=== PATIENT | male | born 1985 | race Caucasian/White ===

== ENCOUNTER 2017-08-23 22:11 | Emergency (ER) | payer OTHER ==
[2017-08-23 22:39] LABS: ADD MAN DIFF? NO
[2017-08-23 22:42] LABS: BILIRUBIN,URINE NEGATIVE (NEG); CLARITY,URINE CLEAR; COLOR,URINE YELLOW; GLUCOSE,URINE NEGATIVE (NEG); NITRITE,URINE NEGATIVE (NEG); PH,URINE 5.5; PROTEIN,URINE NEGATIVE (NEG-TRACE)
[2017-08-23 22:44] LABS: BASO # 0.1 x10^3/uL (0.0-0.2); BASO % 1 % (0-3); EOS # 0.5 x10^3/uL (0.0-0.7); EOS % 4 % (0-3); HEMATOCRIT 46.9 % (39.0-53.0); HEMOGLOBIN 16.2 g/dL (13.0-17.5); LYMPH # 3.5 x10^3/uL (1.0-4.8); LYMPH % 29 % (24-48); MEAN CORPUSCULAR HEMOGLOBIN 31 pg (25-35); MEAN CORPUSCULAR HGB CONC 35 g/dL (31-37); MEAN CORPUSCULAR VOLUME 88 fL (79-100); MONO # 1.3 x10^3/uL (0.0-1.1); MONO % 10 % (0-9); NEUT # 6.7 x10^3uL (1.8-7.7); NEUT % 56 % (31-73); PLATELET COUNT 279 x10^3/uL (140-400); RED BLOOD COUNT 5.32 x10^6/uL (4.30-5.70); RED CELL DISTRIBUTION WIDTH 13.7 % (11.5-14.5); WHITE BLOOD COUNT 12.1 x10^3/uL (4.0-11.0)
[2017-08-23 22:47] LABS: BACTERIA,URINE FEW /HPF (0-FEW); RBC,URINE 0 /HPF (0-2); SQUAMOUS EPITHELIAL CELL,UR MANY /LPF
[2017-08-23 22:52] LABS: ANION GAP 9 (6-14); BLOOD UREA NITROGEN 10 mg/dL (8-26); BUN/CREATININE RATIO 10 (6-20); CALCIUM 8.8 mg/dL (8.5-10.1); CARBON DIOXIDE 29 mmol/L (21-32); CHLORIDE 102 mmol/L (98-107); GFR 86.1; GLUCOSE 88 mg/dL (70-99); POTASSIUM 3.6 mmol/L (3.5-5.1); SODIUM 140 mmol/L (136-145)
[2017-08-23] MEDS: FAMOTIDINE 20 MG/2 ML VIAL IVP (22:55)
[2017-08-23] MEDS: IV NORMAL SALINE 1000ML BAG 1,000 ML IV (22:55)
[2017-08-23] MEDS: KETOROLAC 30 MG/ML INJ. IV (22:56)
[2017-08-23] MEDS: ONDANSETRON PF 4 MG/2 ML VIAL. IV (22:56)
[2017-08-23 22:58] LABS: ALBUMIN 4.2 g/dL (3.4-5.0); ALBUMIN/GLOBULIN RATIO 1.1 (1.0-1.7); ALK PHOS 74 U/L (46-116); ALT (SGPT) 69 U/L (16-63); AST (SGOT) 35 U/L (15-37); LIPASE 208 U/L (73-393); MAGNESIUM 2.1 mg/dL (1.8-2.4); TOTAL BILIRUBIN 0.3 mg/dL (0.2-1.0); TOTAL PROTEIN 7.9 g/dL (6.4-8.2)
== END 2017-08-23 23:45 | disposition home or self-care (01) ==
LOC: ER 22:11
DX: R10.13 Epigastric pain (principal); R11.2 Nausea with vomiting, unspecified; G89.29 Other chronic pain; Z98.890 Other specified postprocedural states
CPT/HCPCS: 36415; 80053; 81001; 83690; 83735; 85025; 87086; 96374; 96375; 99284-25; J1885; J2405; J7030; S0028

== ENCOUNTER 2018-09-17 11:52 | Emergency (ER) | payer MEDICAID, OTHER ==
[~2018-09-17] VITALS: Ht 165.1 cm; Wt 122.5 kg
[~2018-09-17 11:52] MED LIST: CALC200T23 PO; FAMO-63 PO; ONDA4TAB7 PO; PANT40TA77 PO
--- NOTE | 2018-09-17 12:27 | EKG ---
[facility] [address] [place] [address] Test Date: 2018-09-17 Test Time: 11:55:43 Pat Name: YVROSE HERNÁNDEZ Department: Room: Gender: M Assistant Plant Manager: : [id number] Requested By: SALAZAR ALVAREZ Order Number: [id number] Reading MD: Measurements Intervals [place] Rate: 96 P: 30 FL: 152 QRS: 28 QRSD: 76 T: 29 QT: 316 QTc: 400 Interpretive Statements SINUS RHYTHM NO SPECIFIC ECG ABNORMALITIES RI6.01 Unconfirmed report No previous ECG available for comparison
[2018-09-17 12:30] LABS: BASO # 0.1 x10^3/uL (0.0-0.2); BASO % 1 % (0-3); EOS # 0.2 x10^3/uL (0.0-0.7); EOS % 3 % (0-3); HEMATOCRIT 47.5 % (39.0-53.0); HEMOGLOBIN 16.6 g/dL (13.0-17.5); LYMPH # 2.5 x10^3/uL (1.0-4.8); LYMPH % 27 % (24-48); MEAN CORPUSCULAR HEMOGLOBIN 31 pg (25-35); MEAN CORPUSCULAR HGB CONC 35 g/dL (31-37); MEAN CORPUSCULAR VOLUME 88 fL (79-100); MONO # 0.7 x10^3/uL (0.0-1.1); MONO % 8 % (0-9); NEUT # 5.5 x10^3/uL (1.8-7.7); NEUT % 61 % (31-73); PLATELET COUNT 223 x10^3/uL (140-400); RED CELL DISTRIBUTION WIDTH 13.9 % (11.5-14.5); WHITE BLOOD COUNT 9.1 x10^3/uL (4.0-11.0)
--- NOTE | 2018-09-17 12:32 | PHYS DOC ---
Past Medical History Past Medical History: Seizure, Other Additional Past Medical Histor: Heart murmur, Chronic back pain Past Surgical History: Other Additional Past Surgical Histo: Low back surgery. Additional Information: Alcohol Use: None Drug Use: None Adult General Chief Complaint Chief Complaint: UPPER EXTREMITY PAIN HPI HPI Patient is a 32 year old male with history of seizures who presents to the ED today 7 out of 10 left arm pain, patient is also complaining of 7 out of 10 left neck pain and intermittent episodes of a headache, patient states symptoms began yesterday. Patient states symptoms do not radiate from the neck to the arm. Denies anything specifically alleviating his symptoms. He states his left arm pain is worse on range of motion, he states his left neck pain is worse on turning his neck to the left. Denies any fever, chest pain, nausea, vomiting. He states he is not had a seizure 4 years. He states his seizures were induced by heat. He denies being on any antiseizure medications. Patient states he has tried taking Tylenol and Motrin with no relief. Review of Systems Review of Systems Constitutional: Denies fever or chills [] Eyes: Denies change in visual acuity, redness, or eye pain [] HENT: Denies nasal congestion or sore throat [] Respiratory: Denies cough or shortness of breath [] Cardiovascular: No additional information not addressed in HPI [] GI: Denies abdominal pain, nausea, vomiting, bloody stools or diarrhea [] : Denies dysuria or hematuria [] Musculoskeletal: Reports left arm pain. Reports left lateral neck pain. Integument: Denies rash or skin lesions [] Neurologic: Reports headache, denies focal weakness or sensory changes [] All other systems were reviewed and found to be within normal limits, except as documented in this note. Allergies Allergies Allergies Coded Allergies Type Severity Reaction Last Updated Verified No Known Allergies Allergy Unknown 11/16/15 Yes Physical Exam Physical Exam Constitutional: Well developed, well nourished, no acute distress, non-toxic appearance. [] HENT: Normocephalic, atraumatic, bilateral external ears normal, oropharynx moist, no oral exudates, nose normal. [] Eyes: PERRLA, EOMI, conjunctiva normal, no discharge. [] Neck: Normal range of motion, no tenderness, supple, no stridor. [] Cardiovascular:Heart rate regular rhythm, no murmur [] Lungs & Thorax: Bilateral breath sounds clear to auscultation [] Abdomen: Bowel sounds normal, soft, no tenderness, no masses, no pulsatile masses. [] Skin: Warm, dry, no erythema, no rash. [] Back: No tenderness, no CVA tenderness. [] Extremities: No tenderness, no cyanosis, no clubbing, ROM intact, no edema. [] Neurologic: Alert and oriented X 3, normal motor function, normal sensory function, no focal deficits noted. [] Psychologic: Affect normal, judgement normal, mood normal. Current Patient Data Vital Signs Vital Signs Date Time Temp Pulse Resp B/P (MAP) Pulse Ox O2 Delivery O2 Flow Rate FiO2 09/17/18 11:58 98.8 95 16 152/96 (114) 97 Room Air 98.8 Lab Values Laboratory Tests Test 09/17/18 12:10 White Blood Count 9.1 x10^3/uL (4.0-11.0) Red Blood Count 5.40 x10^6/uL (4.30-5.70) Hemoglobin 16.6 g/dL (13.0-17.5) Hematocrit 47.5 % (39.0-53.0) Mean Corpuscular Volume 88 fL (79-100) Mean Corpuscular Hemoglobin 31 pg (25-35) Mean Corpuscular Hemoglobin Concent 35 g/dL (31-37) Red Cell Distribution Width 13.9 % (11.5-14.5) Platelet Count 223 x10^3/uL (140-400) Neutrophils (%) (Auto) 61 % (31-73) Lymphocytes (%) (Auto) 27 % (24-48) Monocytes (%) (Auto) 8 % (0-9) Eosinophils (%) (Auto) 3 % (0-3) Basophils (%) (Auto) 1 % (0-3) Neutrophils # (Auto) 5.5 x10^3/uL (1.8-7.7) Lymphocytes # (Auto) 2.5 x10^3/uL (1.0-4.8) Monocytes # (Auto) 0.7 x10^3/uL (0.0-1.1) Eosinophils # (Auto) 0.2 x10^3/uL (0.0-0.7) Basophils # (Auto) 0.1 x10^3/uL (0.0-0.2) Sodium Level 139 mmol/L (136-145) Potassium Level 4.0 mmol/L (3.5-5.1) Chloride Level 102 mmol/L (98-107) Carbon Dioxide Level 26 mmol/L (21-32) Anion Gap 11 (6-14) Blood Urea Nitrogen 10 mg/dL (8-26) Creatinine 0.9 mg/dL (0.7-1.3) Estimated GFR (Cockcroft-Gault) 96.6 BUN/Creatinine Ratio 11 (6-20) Glucose Level 115 mg/dL (70-99) H Calcium Level 9.3 mg/dL (8.5-10.1) Magnesium Level 2.1 mg/dL (1.8-2.4) Total Bilirubin 0.4 mg/dL (0.2-1.0) Aspartate Amino Transferase (AST) 41 U/L (15-37) H Alanine Aminotransferase (ALT) 76 U/L (16-63) H Alkaline Phosphatase 77 U/L (46-116) Creatine Kinase 213 U/L (39-308) Creatine Kinase MB (Mass) 2.4 ng/mL (0.0-3.6) Creatine Kinase MB Relative Index 1.1 % (0-4) Troponin I Quantitative < 0.017 ng/mL (0.000-0.055) RC-Pxs-G-Type Natriuretic Peptide 10 pg/mL (0-124) Total Protein 7.8 g/dL (6.4-8.2) Albumin 4.0 g/dL (3.4-5.0) Albumin/Globulin Ratio 1.1 (1.0-1.7) Thyroid Stimulating Hormone (TSH) 1.072 uIU/mL (0.358-3.74) Laboratory Tests 09/17/18 12:10 Laboratory Tests 09/17/18 12:10 EKG EKG [address] Macias sinus rhythm HR 96 no STEMI[] Radiology/Procedures Radiology/Procedures []PROCEDURE: CERVICAL SPINE 2-3V C-SPINE 4 VIEWS Clinical Indication: neck pain. Left arm radiculopathy. Comparison: None. Findings: Lateral, swimmer's, AP, and open-mouth views. Bony overlap on the swimmer's view limits evaluation. Straightening of normal cervical lordosis may be positional or due to muscle spasm. The prevertebral soft tissues are normal. There is mild degenerative endplate spurring in the cervical spine. Mild disc space narrowing at C4/C5 and C6/C7. No significant uncovertebral or facet joint hypertrophy. The base of the odontoid is intact. The lateral masses are symmetric. There is no acute fracture or spondylolisthesis. IMPRESSION: No acute fracture or malalignment. Electronically signed by: Sami Etienne MD (09/17/2018 12:48 PM) [facility] DICTATED and SIGNED BY: SAMI ETIENNE MD DATE: 09/17/18 1248 PROCEDURE: PORTABLE CHEST 1V PORTABLE CHEST 1V Clinical Indication: Shortness of air, left-sided chest and arm pain. Comparison: AP chest, November 16, 2015. Findings: The cardiomediastinal silhouette is normal. Lungs are clear. There is no pneumothorax. No pleural effusion is appreciated. No acute bone abnormality. IMPRESSION: No acute cardiopulmonary process. Electronically signed by: Sami Etienne MD (09/17/2018 12:49 PM) [facility] DICTATED and SIGNED BY: SAMI ETIENNE MD DATE: 09/17/18 124 PROCEDURE: CT HEAD WO CONTRAST PQRS Compliance Statement: One or more of the following individualized dose reduction techniques were utilized for this examination: 1. Automated exposure control 2. Adjustment of the mA and/or kV according to patient size 3. Use of iterative reconstruction technique CT HEAD WITHOUT CONTRAST History: Arm pain. Comparison: None. Procedure: Axial images are obtained of the head from the skull base through the vertex without IV contrast. Findings: The ventricles and sulci are normal for the patient's age. No mass-effect, midline shift, hemorrhage, extra-axial fluid collection, or obvious acute infarction is identified. Basilar cisterns are patent. Bone windows demonstrate no acute calvarial abnormality. The visualized paranasal sinuses are clear. Mastoid air cells are well aerated. IMPRESSION: No acute intracranial abnormality. Electronically signed by: Sami Etienne MD (09/17/2018 12:41 PM) [facility] DICTATED and SIGNED BY: SAMI ETIENNE MD DATE: 09/17/18 1241 Course & Med Decision Making Course & Med Decision Making Pertinent Labs and Imaging studies reviewed. (See chart for details) This is a 32 year old male patient presented to the ED today with multiple complaints including headache, left arm pain, left neck pain, symptoms began yesterday. EKG is negative, chest x-ray, CT of the head, cervical spine [id number] for any acute findings. CBC with a normal WBC, troponin is normal CMP with AST of 41, ALT of 76-patient denies any abdominal pain. Patient refused to give us any urine. Symptoms appear musculoskeletal. Was discharged to home. OTC pain relievers recommended. Dragon Disclaimer Dragon Disclaimer This electronic medical record was generated, in whole or in part, using a voice recognition dictation system. Departure Departure Impression: Primary Impression: Headache Additional Impression: Radicular pain in left arm Disposition: 01 HOME, SELF-CARE Condition: STABLE Referrals: NO PCP (PCP) Follow-up with your doctor in the course of next week Patient Instructions: Cervical Radiculopathy, [id number], Headache, FAQs Additional Instructions: You were evaluated in the emergency room for headache,neck pain and arm pain. Your symptoms appear musculoskeletal. Your work up is negative in the emergency room. Please follow-up with your own doctor in the course of next week. You can take over the counter pain relievers as needed Problem Qualifiers Primary Impression: Headache Headache type: unspecified Headache chronicity pattern: unspecified patter n Intractability: not intractable Qualified Codes: R51 - Headache SALAZAR ALVAREZ [employer] Sep 17, 2018 12:32
[2018-09-17 12:38] LABS: CALCIUM 9.3 mg/dL (8.5-10.1); CREATININE 0.9 mg/dL (0.7-1.3); GFR 96.6
--- NOTE | 2018-09-17 12:44 | RAD ---
RS Compliance Statement: One or more of the following individualized dose reduction techniques were utilized for this examination: 1. Automated exposure control 2. Adjustment of the mA and/or kV according to patient size 3. Use of iterative reconstruction technique CT HEAD WITHOUT CONTRAST History: Arm pain. Comparison: None. Procedure: Axial images are obtained of the head from the skull base through the vertex without IV contrast. Findings: The ventricles and sulci are normal for the patient's age. No mass-effect, midline shift, hemorrhage, extra-axial fluid collection, or obvious acute infarction is identified. Basilar cisterns are patent. Bone windows demonstrate no acute calvarial abnormality. The visualized paranasal sinuses are clear. Mastoid air cells are well aerated. IMPRESSION: No acute intracranial abnormality. Electronically signed by: Sami Pandya MD (09/17/2018 12:41 PM) [facility]
[2018-09-17 12:45] LABS: ALBUMIN/GLOBULIN RATIO 1.1 (1.0-1.7); MAGNESIUM 2.1 mg/dL (1.8-2.4); TOTAL BILIRUBIN 0.4 mg/dL (0.2-1.0); TOTAL PROTEIN 7.8 g/dL (6.4-8.2)
--- NOTE | 2018-09-17 12:51 | RAD ---
C-SPINE 4 VIEWS Clinical Indication: neck pain. Left arm radiculopathy. Comparison: None. Findings: Lateral, swimmer's, AP, and open-mouth views. Bony overlap on the swimmer's view limits evaluation. Straightening of normal cervical lordosis may be positional or due to muscle spasm. The prevertebral soft tissues are normal. There is mild degenerative endplate spurring in the cervical spine. Mild disc space narrowing at C4/C5 and C6/C7. No significant uncovertebral or facet joint hypertrophy. The base of the odontoid is intact. The lateral masses are symmetric. There is no acute fracture or spondylolisthesis. IMPRESSION: No acute fracture or malalignment. Electronically signed by: Sami Pandya MD (09/17/2018 12:48 PM) [facility]
--- NOTE | 2018-09-17 12:52 | RAD ---
PORTABLE CHEST 1V Clinical Indication: Shortness of air, left-sided chest and arm pain. Comparison: AP chest, November 16, 2015. Findings: The cardiomediastinal silhouette is normal. Lungs are clear. There is no pneumothorax. No pleural effusion is appreciated. No acute bone abnormality. IMPRESSION: No acute cardiopulmonary process. Electronically signed by: Sami Pandya MD (09/17/2018 12:49 PM) [facility]
[2018-09-17 13:30] VITALS: BP 150/88
[2018-09-17 14:10] LABS: AMPHETAMINE/METHAMPHETAMINE NEG (NEG); BARBITURATES NEG (NEG); BENZODIAZEPINES NEG (NEG); CANNABINOIDS NEG (NEG); COCAINE NEG (NEG); METHADONE NEG (NEG); OPIATES NEG (NEG); PHENCYCLIDINE NEG (NEG)
== END 2018-09-17 14:04 | disposition home or self-care (01) ==
LOC: ER 11:52
DX: R51 Headache (principal); M54.2 Cervicalgia; M79.602 Pain in left arm; G89.29 Other chronic pain; F17.200 Nicotine dependence, unspecified, uncomplicated
CPT/HCPCS: 36415; 70450; 71045; 72040; 80053; 80307; 82553; 83735; 83880; 84443; 84484; 85025; 93005; 99285-25